=== PATIENT | female | born 1950 | race Caucasian/White ===

== ENCOUNTER 2016-10-13 11:02 | Outpatient (CLI) | payer MEDICARE, MEDICAID ==
[2016-10-13 11:44] LABS: ALT (SGPT) 21 U/L (8-55); AST (SGOT) 36 U/L (5-34); Alkaline Phosphatase 40 U/L (40-150); Anion Gap 11 mmol/L (10-20); BUN (Urea Nitrogen) 14 mg/dL (9.8-20.1); Bilirubin, Total 0.4 mg/dL (0.2-1.2); CRP (Inflammatory) Less than 0.50 mg/dL (= or < 0.5); Calc. Creatinine Clearance 0 mL/min (70-130); Carbon Dioxide 24 mmol/L (23-31); Chloride 108 mmol/L (98-107); Estimated GFR-MDRD 87; Globulin 2.7 g/dL (2.4-3.5); Glucose 106 mg/dL (80-115); Potassium 3.4 mmol/L (3.5-5.1); Protein, Total 6.7 g/dL (5.8-8.1); Sodium 140 mmol/L (136-145)
[2016-10-13 12:09] LABS: #Basophils 0.1 thou/uL (0.0-0.2); #Eosinphils 0.1 thou/uL (0.0-0.7); #Lymphocytes 1.1 thou/uL (1.20-3.40); #Monocytes 0.3 thou/uL (0.11-0.59); #Neutrophils 1.2 thou/uL (1.40-6.50); %Basophils 2.6 % (0.0-1.0); %Eosinophils 2.6 % (0.0-10.0); %Lymphocytes 40.3 % (21.0-51.0); %Monocytes 10.8 % (0.0-10.0); %Neutrophils 43.8 % (42.0-75.0); Hemoglobin 10.4 g/dL (12.0-16.0); Mean Corpuscular HGB CONC 33.3 g/dL (32.0-36.0); Mean Corpuscular Hemoglobin 30.5 pg (27.0-31.0); Mean Corpuscular Volume 91.6 fl (81.0-99.0); Mean Platelet Volume 7.4 fL (7.4-10.4); Platelet Count 282 thou/uL (130-400); RBC Distribution Width 12.2 % (11.5-14.5); Red Blood Cell (RBC) Count 3.42 mill/uL (4.20-5.40); White Blood Cell (WBC) Count 2.7 thou/uL (4.8-10.8)
== END 2016-10-13 11:03 | disposition home or self-care (01) ==
LOC: MADLAB 11:02
DX: M06.09 Rheumatoid arthritis without rheumatoid factor, multiple sites (principal); Z79.899 Other long term (current) drug therapy
CPT/HCPCS: 36415; 80053; 85025; 85652; 86140; 86480

== ENCOUNTER 2016-11-09 14:33 | Outpatient (CLI) | payer MEDICARE, OTHER ==
[2016-11-09 15:14] LABS: ALT (SGPT) 20 U/L (8-55); AST (SGOT) 33 U/L (5-34); Albumin 4.2 g/dL (3.4-4.8); Alkaline Phosphatase 37 U/L (40-150); Anion Gap 13 mmol/L (10-20); BUN (Urea Nitrogen) 18 mg/dL (9.8-20.1); Bilirubin, Total 0.6 mg/dL (0.2-1.2); Calc. Creatinine Clearance 0 mL/min (70-130); Calcium 9.6 mg/dL (7.8-10.44); Carbon Dioxide 22 mmol/L (23-31); Cardiac Risk 2.9 (Less than 4.5); Chloride 109 mmol/L (98-107); Cholesterol 144 mg/dl (< 200 Desired); Estimated GFR-MDRD 77; Globulin 3.3 g/dL (2.4-3.5); Glucose 100 mg/dL (80-115); HDL Cholesterol 49 mg/dL (>60 Neg Risk); LDL Cholesterol, Calculated 80 mg/dL; Potassium 3.3 mmol/L (3.5-5.1); Protein, Total 7.5 g/dL (6.0-8.3); Sodium 141 mmol/L (136-145); Triglycerides 73 mg/dL (Less than 150)
[2016-11-09 15:27] LABS: Mean Corpuscular HGB CONC 34.1 g/dL (32.0-36.0); Mean Corpuscular Hemoglobin 30.5 pg (27.0-31.0); Mean Corpuscular Volume 89.5 fl (81.0-99.0); Mean Platelet Volume 7.5 fL (7.4-10.4); Platelet Count 323 thou/uL (130-400); RBC Distribution Width 11.8 % (11.5-14.5); Red Blood Cell (RBC) Count 3.59 mill/uL (4.20-5.40); White Blood Cell (WBC) Count 2.8 thou/uL (4.8-10.8)
[2016-11-09 15:55] LABS: Vitamin D, 25 Hydroxy 73.2 ng/ml (> 30.0)
[2016-11-10 15:42] LABS: Thyroid Stimulating Hormone 0.9403 uIU/mL (0.35-4.94)
[2016-11-10 18:56] LABS: Free Thyroxine Index 1.78 (1.4-3.1); T4 6.6 ug/dL (4.87-11.72)
== END 2016-11-09 14:34 | disposition home or self-care (01) ==
LOC: MADLAB 14:33
PROVIDERS: ATTEND Internal Medicine
DX: E78.5 Hyperlipidemia, unspecified (principal); E55.9 Vitamin D deficiency, unspecified; E03.9 Hypothyroidism, unspecified; E53.8 Deficiency of other specified B group vitamins; R53.83 Other fatigue; Z79.899 Other long term (current) drug therapy
CPT/HCPCS: 36415; 80053; 80061; 82306; 82607; 84436; 84443; 84479; 85027

== ENCOUNTER 2017-01-07 15:31 | Outpatient (CLI) | payer MEDICARE, OTHER ==
[2017-01-07 16:18] LABS: #Basophils 0.1 thou/uL (0.0-0.2); #Eosinphils 0.1 thou/uL (0.0-0.7); #Lymphocytes 1.3 thou/uL (1.20-3.40); #Monocytes 0.4 thou/uL (0.11-0.59); %Basophils 2.9 % (0.0-1.0); %Eosinophils 3.4 % (0.0-10.0); %Lymphocytes 44.6 % (21.0-51.0); %Monocytes 12.5 % (0.0-10.0); %Neutrophils 36.8 % (42.0-75.0); Mean Corpuscular Hemoglobin 29.9 pg (27.0-31.0); Mean Corpuscular Volume 93.3 fl (81.0-99.0); Mean Platelet Volume 7.7 fL (7.4-10.4); Platelet Count 313 thou/uL (130-400); RBC Distribution Width 12.8 % (11.5-14.5); Red Blood Cell (RBC) Count 3.35 mill/uL (4.20-5.40); White Blood Cell (WBC) Count 2.8 thou/uL (4.8-10.8)
[2017-01-07 17:05] LABS: Anion Gap 14 mmol/L (10-20); BUN (Urea Nitrogen) 20 mg/dL (9.8-20.1); Calc. Creatinine Clearance 0 mL/min (70-130); Calcium 9.9 mg/dL (7.8-10.44); Carbon Dioxide 23 mmol/L (23-31); Chloride 108 mmol/L (98-107); Estimated GFR-MDRD 77; Glucose 82 mg/dL (80-115); Potassium 4.1 mmol/L (3.5-5.1); Sodium 141 mmol/L (136-145)
== END 2017-01-07 15:32 | disposition home or self-care (01) ==
LOC: MADLAB 15:31
DX: E11.65 Type 2 diabetes mellitus with hyperglycemia (principal)
CPT/HCPCS: 36415; 80048; 85025

== ENCOUNTER 2017-03-05 09:59 | Outpatient (CLI) | payer MEDICARE, OTHER ==
[2017-03-05 10:45] LABS: Anion Gap 12 mmol/L (10-20); BUN (Urea Nitrogen) 22 mg/dL (9.8-20.1); Calc. Creatinine Clearance 0 mL/min (70-130); Calcium 9.4 mg/dL (7.8-10.44); Carbon Dioxide 24 mmol/L (23-31); Chloride 108 mmol/L (98-107); Estimated GFR-MDRD 77; Glucose 84 mg/dL (80-115); Potassium 3.8 mmol/L (3.5-5.1); Sodium 140 mmol/L (136-145)
[2017-03-05 17:32] LABS: Free Thyroxine Index 1.78 (1.4-3.1); T4 6.5 ug/dL (4.87-11.72)
== END 2017-03-05 10:00 | disposition home or self-care (01) ==
LOC: MADLAB 09:59
PROVIDERS: ATTEND Internal Medicine
DX: E03.9 Hypothyroidism, unspecified (principal)
CPT/HCPCS: 36415; 80048; 84436; 84443; 84479

== ENCOUNTER 2017-12-02 12:36 | Outpatient (CLI) | payer MEDICARE, MEDICAID ==
[2017-12-02 13:13] LABS: #Basophils 0.1 thou/uL (0.0-0.2); #Eosinphils 0.1 thou/uL (0.0-0.7); #Lymphocytes 1.3 thou/uL (1.20-3.40); #Monocytes 0.3 thou/uL (0.11-0.59); #Neutrophils 1.8 thou/uL (1.40-6.50); %Basophils 1.9 % (0.0-1.0); %Eosinophils 3.3 % (0.0-10.0); %Lymphocytes 36.7 % (21.0-51.0); %Monocytes 8.4 % (0.0-10.0); %Neutrophils 49.7 % (42.0-75.0); Hemoglobin 9.7 g/dL (12.0-16.0); Mean Corpuscular HGB CONC 31.8 g/dL (32.0-36.0); Mean Corpuscular Hemoglobin 28.3 pg (27.0-31.0); Mean Corpuscular Volume 89.2 fL (78.0-98.0); Mean Platelet Volume 6.8 fL (7.4-10.4); Platelet Count 315 thou/uL (130-400); Red Blood Cell (RBC) Count 3.44 mill/uL (4.20-5.40); White Blood Cell (WBC) Count 3.7 thou/uL (4.8-10.8)
[2017-12-02 13:20] LABS: Bilirubin Negative (Negative); Blood, Urine Moderate (Negative); Clarity Clear (Clear); Glucose, Urine (Dipstick) Negative (Negative); Leukocyte Trace (Negative); Nitrite Negative (Negative); Protein, Urine (Dipstick) Negative (Neg-Trace); Specific Gravity, Urine 1.015 (1.005-1.030); Urobilinogen 0.2 mg/dL (0.2-1.0)
[2017-12-02 13:25] LABS: Bacteria/HPF None Seen HPF (None Seen)
[2017-12-02 13:45] LABS: Squamous Epithelial 0-3 HPF (0-3); WBC/HPF 0-3 HPF (0-3)
== END 2017-12-02 12:37 | disposition home or self-care (01) ==
LOC: MADLABBHPM 12:36
PROVIDERS: ATTEND Urology
DX: N20.0 Calculus of kidney (principal)
CPT/HCPCS: 36415; 81001; 85025; 87086

== ENCOUNTER 2018-07-11 10:39 | Outpatient (CLI) | payer MEDICARE, MEDICAID ==
--- NOTE | 2018-07-11 11:42 | RAD ---
KUB: Date: 07/11/18 COMPARISON: 12/23/17. HISTORY: History of renal stone disease. FINDINGS: The prior examination demonstrates a double-J ureteral stent on the right. This stent has been remove d when compared to the prior examination. Supine imaging is provided, limiting assessment for free in traperitoneal air and bowel obstruction. Pelvic calcifications on the left are noted, stable, suggest ing vascular calcifications. There is a questionable tiny calcification in the mid left abdomen measuring 4.0 mm. This could repre sent bowel content or a small stone in the lower pole of the left kidney. No calcification overlies t he right upper quadrant. IMPRESSION: Questionable 4.0 mm calcification in the expected location of lower pole left kidney. Study appears o therwise unremarkable. POS: [facility]
[2018-07-11 12:17] LABS: Anion Gap 12 mmol/L (10-20); BUN (Urea Nitrogen) 18 mg/dL (9.8-20.1); Calc. Creatinine Clearance 0 mL/min (70-130); Calcium 9.4 mg/dL (7.8-10.44); Carbon Dioxide 25 mmol/L (23-31); Chloride 109 mmol/L (98-107); Estimated GFR-MDRD 86; Glucose 105 mg/dL (80-115); Potassium 3.2 mmol/L (3.5-5.1); Sodium 143 mmol/L (136-145)
[2018-07-11 12:25] LABS: Bilirubin Negative (Negative); Blood, Urine Negative (Negative); Clarity Clear (Clear); Glucose, Urine (Dipstick) Negative (Negative); Leukocyte Trace (Negative); Nitrite Negative (Negative); Protein, Urine (Dipstick) Negative (Neg-Trace); Urobilinogen 0.2 mg/dL (0.2-1.0)
[2018-07-11 12:32] LABS: RBC/HPF 0-3 HPF (0-3)
[2018-07-11 12:33] LABS: Squamous Epithelial 0-3 HPF (0-3)
[2018-07-11 12:34] LABS: Bacteria/HPF 1+ HPF (None Seen)
--- NOTE | 2018-07-11 13:42 | ULT ---
BILATERAL RENAL ULTRASOUND COMPLETE: Date: 07/11/18 HISTORY: Follow-up renal stones and renal cysts. COMPARISON: 09/06/17 CT. FINDINGS: The right kidney measures 8.8 cm in length and 3.8 x 5.6 cm transversely. The left kidney measures 10 .1 x 4.2 x 3.8 cm. Small left renal cyst up to 1.4 cm in size. There is one small opacity in the mid left kidney which could represent a renal calculus. No evidence for hydronephrosis. Pre-void bladder volume of 124 mL. Post-void bladder volume of 38 mL. IMPRESSION: Small left renal cyst. No renal hydronephrosis or perinephric process. Possible nonobstructing left r enal calculus. POS: [facility]
== END 2018-07-11 10:40 | disposition home or self-care (01) ==
LOC: MADLABBHPM 10:39
PROVIDERS: ATTEND Urology
DX: N20.0 Calculus of kidney (principal); N28.1 Cyst of kidney, acquired
CPT/HCPCS: 36415; 74018; 76770; 80048; 81003; 81015; 87077; 87086; 87186

== ENCOUNTER 2021-05-27 17:50 | Emergency (ER) | payer MEDICARE ==
[2021-05-27] MEDS ORDERED: Sodium Chloride 0.9% 500 ML ONE (18:15)
[2021-05-27 18:22] LABS: #Lymphocytes 0.3 thou/uL (1.20-3.40); #Monocytes 0.2 thou/uL (0.11-0.59); #Neutrophils 3.7 thou/uL (1.40-6.50); %Basophils 1.1 % (0.0-1.0); %Lymphocytes 8.1 % (21.0-51.0); %Monocytes 3.4 % (0.0-10.0); %Neutrophils 86.4 % (42.0-75.0); Hemoglobin 10.7 g/dL (12.0-16.0); Mean Corpuscular HGB CONC 32.5 g/dL (32.0-36.0); Mean Corpuscular Hemoglobin 29.1 pg (27.0-31.0); Mean Corpuscular Volume 89.7 fL (78.0-98.0); Mean Platelet Volume 7.2 fL (7.4-10.4); Platelet Count 270 thou/uL (130-400); RBC Distribution Width 12.4 % (11.5-14.5); Red Blood Cell (RBC) Count 3.69 mill/uL (4.20-5.40); White Blood Cell (WBC) Count 4.2 thou/uL (4.8-10.8)
[2021-05-27 18:36] LABS: ALT (SGPT) 20 U/L (8-55); AST (SGOT) 32 U/L (5-34); Albumin 4.1 g/dL (3.4-4.8); Alkaline Phosphatase 38 U/L (40-110); Anion Gap 13 mmol/L (10-20); BUN (Urea Nitrogen) 19 mg/dL (9.8-20.1); Bilirubin, Total 0.6 mg/dL (0.2-1.2); Calc. Creatinine Clearance 0 mL/min (70-130); Calcium 9.5 mg/dL (7.8-10.44); Carbon Dioxide 25 mmol/L (23-31); Chloride 105 mmol/L (98-107); Globulin 3.4 g/dL (2.4-3.5); Glucose 108 mg/dL (80-115); Lipase 46 U/L (8-78); Magnesium 1.6 mg/dL (1.6-2.6); Potassium 3.7 mmol/L (3.5-5.1); Protein, Total 7.5 g/dL (5.8-8.1); Sodium 139 mmol/L (136-145)
[2021-05-27] MEDS ORDERED: Ondansetron PF 4 MG/2 ML Vial ONE (19:08)
== END 2021-05-27 20:10 | disposition home or self-care (01) ==
LOC: MADERS 17:50
DX: R19.7 Diarrhea, unspecified (principal); M19.90 Unspecified osteoarthritis, unspecified site; D64.9 Anemia, unspecified
CPT/HCPCS: 80053; 83690; 83735; 85025; 96374; J2405; J7030

== ENCOUNTER 2022-09-22 10:21 | Emergency (ER) | payer MEDICARE ==
[~2022-09-22 10:21] MED LIST: Sodium Chloride 0.9% 1,000 ML BAG ONE
[2022-09-22] MEDS ORDERED: Ondansetron PF 4 MG/2 ML Vial ONE (11:07)
[2022-09-22] MEDS ORDERED: Lactated Ringer's 1,000 ML ONE (11:07)
[2022-09-22 11:27] LABS: #Basophils 0.1 thou/uL (0.0-0.2); #Lymphocytes 1.7 thou/uL (1.20-3.40); #Monocytes 0.5 thou/uL (0.11-0.59); #Neutrophils 5.3 thou/uL (1.40-6.50); %Basophils 1.3 % (0.0-1.0); %Eosinophils 0.5 % (0.0-10.0); %Monocytes 6.1 % (0.0-10.0); %Neutrophils 70.1 % (42.0-75.0); Hemoglobin 9.9 g/dL (12.0-16.0); Mean Corpuscular HGB CONC 31.2 g/dL (32.0-36.0); Mean Corpuscular Hemoglobin 28.7 pg (27.0-31.0); Mean Corpuscular Volume 91.9 fl (78.0-98.0); Mean Platelet Volume 8.1 fL (7.4-10.4); Platelet Count 629 10x3/uL (130-400); RBC Distribution Width 13.4 % (11.5-14.5); Red Blood Cell (RBC) Count 3.46 mill/uL (4.20-5.40); White Blood Cell (WBC) Count 7.5 10x3/uL (4.8-10.8)
[2022-09-22 11:29] LABS: INR-International Normal Ratio 1.1; Prothrombin Time 14.1 sec (12.0-14.7)
[2022-09-22 11:30] LABS: PTT 41.2 sec (22.9-36.1)
[2022-09-22 11:43] LABS: ALT (SGPT) 13 U/L (8-55); AST (SGOT) 27 U/L (5-34); Alkaline Phosphatase 34 U/L (40-110); Anion Gap 15 mmol/L (10-20); BUN (Urea Nitrogen) 39 mg/dL (9.8-20.1); Bilirubin, Total 0.6 mg/dL (0.2-1.2); CK (CPK) 18 U/L (29-168); Calc. Creatinine Clearance 0 mL/min (70-130); Calcium 9.9 mg/dL (7.8-10.44); Carbon Dioxide 22 mmol/L (23-31); Chloride 98 mmol/L (98-107); Estimated GFR 42; Globulin 4.3 g/dL (2.4-3.5); Glucose 98 mg/dL (83-110); Lipase 48 U/L (8-78); Magnesium 2.1 mg/dL (1.6-2.6); Potassium 4.3 mmol/L (3.5-5.1); Protein, Total 7.3 g/dL (5.8-8.1); Sodium 131 mmol/L (136-145)
[2022-09-22 11:45] LABS: Bilirubin Negative (Negative); Blood, Urine Moderate (Negative); Clarity Cloudy (Clear); Glucose, Urine (Dipstick) Negative (Negative); Ketone, Urine Negative (Negative); Leukocyte Large (Negative); Nitrite Negative (Negative); Protein, Urine (Dipstick) 30 mg/dL (Neg-Trace); Urobilinogen 0.2 mg/dL (Less than 2)
[2022-09-22 12:00] LABS: Bacteria/HPF 1+ HPF (None Seen); Squamous Epithelial 0-3 HPF (0-3); WBC/HPF Greater than 50 HPF (0-3)
[2022-09-22 12:08] LABS: SARS-CoV-2 NAA Rapid Test Not Detected (NotDetected)
[2022-09-22 12:43] LABS: CO2 Tension (PvCO2) 34.4 mmHg (42.0-51.0)
[2022-09-22 12:44] LABS: Base Excess-Venous 1.7 mmol/L (-2.0 to 3.0); Bicarbonate (HCO3v) 25.1 mmol/L (22.0-28.0); vO2 Saturation-calc 99.7 % (60.0-85.0)
[2022-09-22 12:45] LABS: Calcium, Ionized 1.25 mmol/L (1.15-1.33); Chloride 98 mmol/L (98-107); Hemoglobin - Calc 10.6 g/dL (12.0-16.0); Potassium 4.4 mmol/L (3.5-5.1); Sodium 134 mmol/L (138-145); T. Carbon Dioxide 26.2 mmol/L (22.0-28.0)
[2022-09-22] MEDS ORDERED: cefTRIAXone (ROCEPHIN) 1 GM VIAL ONE (12:59)
== END 2022-09-22 14:04 | disposition short-term general hospital (02) ==
LOC: MADERS 10:21
DX: N12 Tubulo-interstitial nephritis, not specified as acute or chronic (principal); N17.9 Acute kidney failure, unspecified; N28.89 Other specified disorders of kidney and ureter; R79.1 Abnormal coagulation profile
CPT/HCPCS: 0240U; 71045; 74176; 82330; 82435; 82550; 82803; 83605; 83690; 83735; 84132; 84295; 84484; 85014; 85379; 85610; 85730; 87040; 87081; 87086; 87430; 93005; 94760; 80053; 81003; 81015; 84443; 85025; 96361; 96374; 96375; J0696; J2405; J7050; J7120